=== PATIENT | female | born 1935 | race Caucasian/White ===

== ENCOUNTER 2017-11-22 23:01 | Emergency (ER) | payer MEDICARE ==
[~2017-11-22] VITALS: Ht 167.6 cm; Wt 68.0 kg
[~2017-11-22 23:01] MED LIST: ALLEGRA60 M2 PO; ASPIRIN81 M1 PO; B6-FOLIC ACID1 CAP PO; BUFFERED ASPIR325 MG PO; COMPLEXED POTAS99 MG PO; EFFIENT10 MG PO; FLEXERIL5 MG PO; LASIX20 MG PO; LEVOTHROID0.125 MG PO; LOPRESSOR50 MG PO; NORCO 325 MG-51 TAB PO; NORVASC10 MG PO; OMEGA-31000 MG PO; OYSTER CALCIUM500 M1 PO; PLAVIX75 MG PO; PRAVACHOL40 MG PO; PRAVASTATIN; PREDNISONE20 MG PO; PRILOSEC10 MG PO; ROBITUSSIN DM120 ML PO; ULTRA B-100 COM1 TER PO; VIBRAMYCIN100 MG PO; ZESTRIL5 MG PO; ZITHROMAX Z PA250 MG PO; ZOCOR80 MG PO; Zestril,Prinivi40 MG PO; [UNRECOGNIZED DRUG - CODE]; [UNRECOGNIZED DRUG - OTHER] PO
== END 2017-11-23 01:04 | disposition home or self-care (01) ==
LOC: ED 23:01
DX: L29.9 Pruritus, unspecified (principal); T38.0X5A Adverse effect of glucocorticoids and synthetic analogues, initial encounter; Z98.890 Other specified postprocedural states; Z95.5 Presence of coronary angioplasty implant and graft; Z79.899 Other long term (current) drug therapy; Z79.82 Long term (current) use of aspirin; Z91.041 Radiographic dye allergy status; Z88.0 Allergy status to penicillin; Y92.9 Unspecified place or not applicable

== ENCOUNTER 2018-06-25 09:15 | Emergency (ER) | payer MEDICARE ==
[~2018-06-25] VITALS: Ht 167.6 cm; Wt 90.7 kg
[2018-06-25] MEDS ORDERED: ACYCLOVIR800 MG PO (09:40)
[2018-06-25] MEDS ORDERED: NORCO 5-325 TA1 EACH PO (09:40)
[2018-06-26] MEDS ORDERED: NORCO 5-325 TA1 EACH PO (15:48)
[2018-06-26] MEDS ORDERED: NEURONTIN300 MG PO (15:48)
== END 2018-06-25 10:45 | disposition home or self-care (01) ==
LOC: ED 09:15
DX: B02.9 Zoster without complications (principal); Z91.041 Radiographic dye allergy status; Z88.0 Allergy status to penicillin; Z91.048 Other nonmedicinal substance allergy status; Z79.82 Long term (current) use of aspirin; Z79.899 Other long term (current) drug therapy

== ENCOUNTER 2018-06-26 15:28 | Emergency (ER) | payer MEDICARE ==
[~2018-06-26] VITALS: Ht 167.6 cm; Wt 90.7 kg
[~2018-06-26 15:28] MED LIST changes: +ACYCLOVIR800 MG PO; +NORCO 5-325 TA1 EACH PO
[2018-06-26] MEDS ORDERED: NORCO 5-325 TA1 EACH PO (15:48)
[2018-06-26] MEDS ORDERED: NEURONTIN300 MG PO (15:48)
== END 2018-06-26 15:54 | disposition home or self-care (01) ==
LOC: ED 15:28
DX: R21 Rash and other nonspecific skin eruption (principal); Z88.0 Allergy status to penicillin; Z91.041 Radiographic dye allergy status; Z79.899 Other long term (current) drug therapy; Z79.82 Long term (current) use of aspirin

== ENCOUNTER 2019-08-04 14:50 | Emergency (ER) | payer MEDICARE ==
[~2019-08-04] VITALS: Ht 167.6 cm; Wt 85.3 kg
[~2019-08-04 14:50] MED LIST changes: +NEURONTIN300 MG PO
[2019-08-04] MEDS ORDERED: TESSALON PERLE100 M1 PO (17:13)
[2019-08-04] MEDS ORDERED: PROAIR HFA8.5 GM INH (17:13)
[2019-08-04] MEDS ORDERED: DOXYCYCLINE100 M3 PO (17:26)
[2019-08-04] MEDS ORDERED: ZOFRAN4 MG PO (17:27)
== END 2019-08-04 17:20 | disposition home or self-care (01) ==
LOC: ED 14:50
DX: J18.1 Lobar pneumonia, unspecified organism (principal); E11.9 Type 2 diabetes mellitus without complications; I25.10 Atherosclerotic heart disease of native coronary artery without angina pectoris; I10 Essential (primary) hypertension; M19.90 Unspecified osteoarthritis, unspecified site; Z91.041 Radiographic dye allergy status; Z88.0 Allergy status to penicillin; Z79.899 Other long term (current) drug therapy; Z79.82 Long term (current) use of aspirin

== ENCOUNTER → 2019-09-10 | Outpatient (CLI) | payer MEDICARE ==
[~2019-09-10] MED LIST changes: +DOXYCYCLINE100 M3 PO; +PROAIR HFA8.5 GM INH; +TESSALON PERLE100 M1 PO; +ZOFRAN4 MG PO
== END | disposition home or self-care (01) ==
LOC: CT 10:47
DX: J18.9 Pneumonia, unspecified organism (principal); R91.1 Solitary pulmonary nodule

== ENCOUNTER → 2020-02-05 | Outpatient (CLI) | payer MEDICARE | END | disposition home or self-care (01) | LOC: CT 12-17 14:00 | DX: R91.8 Other nonspecific abnormal finding of lung field (principal); I25.10 Atherosclerotic heart disease of native coronary artery without angina pectoris; K44.9 Diaphragmatic hernia without obstruction or gangrene ==

== ENCOUNTER → 2021-02-24 | Outpatient (CLI) | payer MEDICARE ==
[~2021-02-24] MED LIST changes: +CALTRATE 600 P1 EACH PO; +CARDIZEM CD120 M2 PO; +COREG12.5 M1 PO; +ECOTRIN81 M1 PO; +IMDUR SA30 MG PO; +LANTUS SOL100 UNIT/1 SC; +LASIX40 MG PO; +LIPITOR40 MG PO; +PLAVIX75 M1 PO; +PROTONIX40 MG PO; +TYLENOL EXTRA500 MG PO; +ULORIC40 MG PO; +VICO75300 PO; +VOLTAREN ARTHRI20 GM T; +[UNRECOGNIZED DRUG - OTHER] PO
== END | disposition home or self-care (01) ==
LOC: CT 10:00
PROVIDERS: ATTEND Internal Medicine Critical Care Medicine
DX: J98.11 Atelectasis (principal); R91.8 Other nonspecific abnormal finding of lung field; I51.7 Cardiomegaly; I25.10 Atherosclerotic heart disease of native coronary artery without angina pectoris; K44.9 Diaphragmatic hernia without obstruction or gangrene; Z87.891 Personal history of nicotine dependence; Z68.32 Body mass index [BMI] 32.0-32.9, adult

== ENCOUNTER 2021-03-04 22:04 | Inpatient (IN) | payer MEDICARE ==
[~2021-03-04] VITALS: Ht 167.6 cm; Wt 86.7 kg
[~2021-03-04 22:04] MED LIST changes: -CALTRATE 600 P1 EACH PO; -CARDIZEM CD120 M2 PO; -COREG12.5 M1 PO; -ECOTRIN81 M1 PO; -IMDUR SA30 MG PO; -LANTUS SOL100 UNIT/1 SC; -LASIX40 MG PO; -LIPITOR40 MG PO; -PLAVIX75 M1 PO; -PROTONIX40 MG PO; -TYLENOL EXTRA500 MG PO; -ULORIC40 MG PO; -VICO75300 PO; -VOLTAREN ARTHRI20 GM T; -[UNRECOGNIZED DRUG - OTHER] PO
[2021-03-04 22:09] VITALS: BP 179/90
[2021-03-04 23:18] LABS: BASO % 0.3 % (0.0-1.0); EOS # 0.1 10*3/uL (0.0-0.4); EOS % 0.8 % (1.0-4.0); HEMATOCRIT 31.2 % (37.0-47.0); LYMPH # 1.5 10*3/uL (1.3-4.4); LYMPH % 9.9 % (27.0-41.0); MEAN CELL VOLUME 90.7 fl (81.0-99.0); MEAN CORPUSCULAR HGB 28.2 pg (27.0-31.0); MEAN CORPUSCULAR HGB CONC 31.1 g/dl (33.0-37.0); MEAN PLATELET VOLUME 9.7 fl (9.6-12.3); MONO # 0.8 10*3/uL (0.1-1.0); NEUT % 83.5 % (47.0-73.0); PLATELET COUNT AUTOMATED 302 10*3/uL (130-400); RED BLOOD COUNT 3.44 10*6/uL (4.10-5.10); RED CELL DISTRI WIDTH 13.2 % (0-14.5); WHITE BLOOD COUNT 15.5 10*3/uL (4.8-10.8)
[2021-03-04 23:34] LABS: ACT PARTIAL THROMBO TIME 20.8 SECONDS (20.0-32.1); INTERNATIONAL NORM RATIO 0.9 (2.0-3.5)
[2021-03-04 23:35] LABS: ALBUMIN 3.2 gm/dl (3.1-4.5); CREATININE 2.35 mg/dL (0.55-1.02); POTASSIUM 4.8 mmol/L (3.5-5.1); TOTAL PROTEIN 6.4 gm/dL (6.4-8.2)
[2021-03-05 03:00] VITALS: BP 157/62
[2021-03-05 04:16] VITALS: BP 160/70
[2021-03-05 06:33] LABS: BASO % 0.2 % (0.0-1.0); EOS # 0.1 10*3/uL (0.0-0.4); EOS % 0.7 % (1.0-4.0); HEMATOCRIT 28.4 % (37.0-47.0); LYMPH # 1.1 10*3/uL (1.3-4.4); MEAN CELL VOLUME 90.2 fl (81.0-99.0); MEAN CORPUSCULAR HGB 27.9 pg (27.0-31.0); MONO # 0.7 10*3/uL (0.1-1.0); MONO % 7.2 % (3.0-9.0); NEUT # 8.3 10*3/uL (2.3-7.9); NEUT % 80.4 % (47.0-73.0); PLATELET COUNT AUTOMATED 275 10*3/uL (130-400); RED BLOOD COUNT 3.15 10*6/uL (4.10-5.10); RED CELL DISTRI WIDTH 13.2 % (0-14.5); WHITE BLOOD COUNT 10.3 10*3/uL (4.8-10.8)
[2021-03-05 06:34] LABS: ALBUMIN 2.9 gm/dl (3.1-4.5); CREATININE 2.05 mg/dL (0.55-1.02); FREE T4 1.23 ng/dl (0.76-1.46); POTASSIUM 4.1 mmol/L (3.5-5.1); TOTAL PROTEIN 5.8 gm/dL (6.4-8.2)
[2021-03-05 06:39] LABS: THYROID STIM HORMONE (HS) 1.25 uIU/ml (0.358-4.75)
[2021-03-05] MEDS ORDERED: CALTRATE 600 P1 EACH PO (06:44)
[2021-03-05] MEDS ORDERED: ULORIC40 MG PO (06:45)
[2021-03-05] MEDS ORDERED: [UNRECOGNIZED DRUG - OTHER] PO (06:49)
[2021-03-05] MEDS ORDERED: PLAVIX75 M1 PO (06:51)
[2021-03-05] MEDS ORDERED: LIPITOR40 MG PO (06:52)
[2021-03-05] MEDS ORDERED: TYLENOL EXTRA500 MG PO (06:53)
[2021-03-05] MEDS ORDERED: ECOTRIN81 M1 PO (06:54)
[2021-03-05] MEDS ORDERED: IMDUR SA30 MG PO (06:56)
[2021-03-05] MEDS ORDERED: VOLTAREN ARTHRI20 GM T (06:59)
[2021-03-05] MEDS ORDERED: COREG12.5 M1 PO (07:01)
[2021-03-05] MEDS ORDERED: CARDIZEM CD120 M2 PO (07:04)
[2021-03-05] MEDS ORDERED: LASIX40 MG PO (07:06)
[2021-03-05] MEDS ORDERED: PROTONIX40 MG PO (07:08)
[2021-03-05] MEDS ORDERED: LANTUS SOL100 UNIT/1 SC (07:11)
[2021-03-05 08:00] VITALS: BP 154/72
[2021-03-05 12:00] VITALS: BP 146/40
[2021-03-05 16:00] VITALS: BP 180/52
[2021-03-05 20:00] VITALS: BP 172/56
[2021-03-06] VITALS (7 sets, daily range): BP systolic 142–178; BP diastolic 46–81
[2021-03-06 06:57] LABS: BASO % 0.4 % (0.0-1.0); EOS # 0.1 10*3/uL (0.0-0.4); EOS % 1.4 % (1.0-4.0); HEMATOCRIT 27.5 % (37.0-47.0); LYMPH # 1.6 10*3/uL (1.3-4.4); LYMPH % 20.2 % (27.0-41.0); MEAN CELL VOLUME 92.3 fl (81.0-99.0); MEAN CORPUSCULAR HGB 28.2 pg (27.0-31.0); MEAN CORPUSCULAR HGB CONC 30.5 g/dl (33.0-37.0); MEAN PLATELET VOLUME 9.8 fl (9.6-12.3); MONO # 0.8 10*3/uL (0.1-1.0); MONO % 9.9 % (3.0-9.0); NEUT # 5.2 10*3/uL (2.3-7.9); NEUT % 67.8 % (47.0-73.0); PLATELET COUNT AUTOMATED 228 10*3/uL (130-400); RED BLOOD COUNT 2.98 10*6/uL (4.10-5.10); RED CELL DISTRI WIDTH 13.5 % (0-14.5); WHITE BLOOD COUNT 7.7 10*3/uL (4.8-10.8)
[2021-03-06 07:22] LABS: CREATININE 1.78 mg/dL (0.55-1.02); POTASSIUM 4.3 mmol/L (3.5-5.1)
[2021-03-07] VITALS: BP 152/93
[2021-03-07 06:34] LABS: CREATININE 2.09 mg/dL (0.55-1.02); POTASSIUM 4.9 mmol/L (3.5-5.1)
[2021-03-07 06:40] LABS: BASO % 0.1 % (0.0-1.0); HEMATOCRIT 25.8 % (37.0-47.0); LYMPH % 8.4 % (27.0-41.0); MEAN CELL VOLUME 92.5 fl (81.0-99.0); MEAN CORPUSCULAR HGB 28.3 pg (27.0-31.0); MEAN CORPUSCULAR HGB CONC 30.6 g/dl (33.0-37.0); MONO # 0.8 10*3/uL (0.1-1.0); MONO % 6.6 % (3.0-9.0); NEUT # 9.9 10*3/uL (2.3-7.9); NEUT % 84.4 % (47.0-73.0); PLATELET COUNT AUTOMATED 243 10*3/uL (130-400); RED BLOOD COUNT 2.79 10*6/uL (4.10-5.10); RED CELL DISTRI WIDTH 13.2 % (0-14.5); WHITE BLOOD COUNT 11.7 10*3/uL (4.8-10.8)
[2021-03-07 08:00] VITALS: BP 164/90
[2021-03-07 12:00] VITALS: BP 158/50
[2021-03-07 16:00] VITALS: BP 167/59
[2021-03-07 20:00] VITALS: BP 166/58
[2021-03-08] VITALS: BP 149/54
[2021-03-08 05:54] LABS: CREATININE 2.11 mg/dL (0.55-1.02); POTASSIUM 4.5 mmol/L (3.5-5.1)
[2021-03-08 06:27] LABS: BASO % 0.3 % (0.0-1.0); EOS # 0.2 10*3/uL (0.0-0.4); EOS % 2.5 % (1.0-4.0); HEMATOCRIT 24.1 % (37.0-47.0); LYMPH # 1.8 10*3/uL (1.3-4.4); LYMPH % 19.6 % (27.0-41.0); MEAN CORPUSCULAR HGB 28.6 pg (27.0-31.0); MEAN CORPUSCULAR HGB CONC 31.1 g/dl (33.0-37.0); MEAN PLATELET VOLUME 9.9 fl (9.6-12.3); MONO # 0.9 10*3/uL (0.1-1.0); NEUT # 6.1 10*3/uL (2.3-7.9); NEUT % 67.2 % (47.0-73.0); PLATELET COUNT AUTOMATED 267 10*3/uL (130-400); RED BLOOD COUNT 2.62 10*6/uL (4.10-5.10); RED CELL DISTRI WIDTH 13.2 % (0-14.5)
[2021-03-08 08:00] VITALS: BP 134/68
[2021-03-08 12:00] VITALS: BP 100/50
[2021-03-08 16:00] VITALS: BP 162/54
[2021-03-08 20:00] VITALS: BP 148/49
[2021-03-08 23:01] LABS: BILIRUBIN Negative (Negative); BLOOD 2+ (Negative); CLARITY Cloudy (Clear); COLOR Yellow (Yellow); GLUCOSE Negative (Negative); KETONE Negative (Negative); LEUKO ESTERASE 1+ (Negative); NITRITE Negative (Negative); SPECIFIC GRAVITY 1.015 (1.001-1.030); UROBILINOGEN 0.2 E.U./dl (0.0-1.0)
[2021-03-08 23:20] LABS: URINE CREATININE RANDOM 72.2 mg/dL
[2021-03-08 23:28] LABS: BACTERIA 4+; EPITHELIAL CELLS 31-40; RBC 21-30 rbc/hpf (0-2); WBC 41-50 wbc/hpf (0-5)
[2021-03-09] VITALS: BP 153/42
[2021-03-09 06:50] LABS: CREATININE 1.86 mg/dL (0.55-1.02); POTASSIUM 4.4 mmol/L (3.5-5.1)
[2021-03-09 07:00] LABS: BASO % 0.3 % (0.0-1.0); EOS # 0.3 10*3/uL (0.0-0.4); EOS % 3.8 % (1.0-4.0); HEMATOCRIT 23.6 % (37.0-47.0); LYMPH # 1.6 10*3/uL (1.3-4.4); LYMPH % 23.1 % (27.0-41.0); MEAN CELL VOLUME 92.9 fl (81.0-99.0); MEAN CORPUSCULAR HGB 28.3 pg (27.0-31.0); MEAN CORPUSCULAR HGB CONC 30.5 g/dl (33.0-37.0); MEAN PLATELET VOLUME 9.9 fl (9.6-12.3); MONO # 0.7 10*3/uL (0.1-1.0); MONO % 10.2 % (3.0-9.0); NEUT # 4.3 10*3/uL (2.3-7.9); NEUT % 62.3 % (47.0-73.0); PLATELET COUNT AUTOMATED 266 10*3/uL (130-400); RED BLOOD COUNT 2.54 10*6/uL (4.10-5.10); RED CELL DISTRI WIDTH 13.2 % (0-14.5); WHITE BLOOD COUNT 6.9 10*3/uL (4.8-10.8)
[2021-03-09 08:00] VITALS: BP 132/82; BP 146/64
[2021-03-09] MEDS ORDERED: LASIX40 MG PO (11:44)
[2021-03-09] MEDS ORDERED: VICO75300 PO (11:44)
[2021-03-09 12:00] VITALS: BP 135/62; BP 142/70
[2021-03-09 16:00] VITALS: BP 138/72
== END 2021-03-09 19:05 | disposition home health service (06) | DRG 480 ==
LOC: ED 22:04 → EDHOLD 03-05 03:19 → 5E 03-05 03:19
PROVIDERS: Emergency Medicine; Internal Medicine; Orthopaedic Surgery; Student in an Organized Health Care Education/Training Program; ADMIT Emergency Medicine; ATTEND Emergency Medicine
PROC: 0QS606Z Reposition Right Upper Femur with Intramedullary Internal Fixation Device, Open Approach (ICD-10-PCS; principal; 2021-03-06)
DX: S72.141A Displaced intertrochanteric fracture of right femur, initial encounter for closed fracture (principal); N17.0 Acute kidney failure with tubular necrosis; M48.00 Spinal stenosis, site unspecified; E11.42 Type 2 diabetes mellitus with diabetic polyneuropathy; I12.9 Hypertensive chronic kidney disease with stage 1 through stage 4 chronic kidney disease, or unspecified chronic kidney disease; E11.22 Type 2 diabetes mellitus with diabetic chronic kidney disease; N18.32 Chronic kidney disease, stage 3b; Z20.822 Contact with and (suspected) exposure to COVID-19; D64.9 Anemia, unspecified; E11.65 Type 2 diabetes mellitus with hyperglycemia; W19.XXXA Unspecified fall, initial encounter; K21.9 Gastro-esophageal reflux disease without esophagitis; E78.5 Hyperlipidemia, unspecified; E03.9 Hypothyroidism, unspecified; I25.10 Atherosclerotic heart disease of native coronary artery without angina pectoris; G89.18 Other acute postprocedural pain; Z95.5 Presence of coronary angioplasty implant and graft; Y93.89 Activity, other specified; Z79.4 Long term (current) use of insulin; Y92.89 Other specified places as the place of occurrence of the external cause; Y99.8 Other external cause status; Z98.891 History of uterine scar from previous surgery; Z87.891 Personal history of nicotine dependence; Z88.0 Allergy status to penicillin; Z91.041 Radiographic dye allergy status; Z83.3 Family history of diabetes mellitus; Z82.49 Family history of ischemic heart disease and other diseases of the circulatory system

== ENCOUNTER → 2021-03-21 | Outpatient (CLI) | payer MEDICARE ==
[~2021-03-21] MED LIST changes: +CALTRATE 600 P1 EACH PO; +CARDIZEM CD120 M2 PO; +COREG12.5 M1 PO; +ECOTRIN81 M1 PO; +IMDUR SA30 MG PO; +LANTUS SOL100 UNIT/1 SC; +LASIX40 MG PO; +LIPITOR40 MG PO; +PLAVIX75 M1 PO; +PROTONIX40 MG PO; +TYLENOL EXTRA500 MG PO; +ULORIC40 MG PO; +VICO75300 PO; +VOLTAREN ARTHRI20 GM T; +[UNRECOGNIZED DRUG - OTHER] PO
== END | disposition home or self-care (01) ==
LOC: ORTHO 00:26
PROVIDERS: ATTEND Orthopaedic Surgery
DX: S72.001A Fracture of unspecified part of neck of right femur, initial encounter for closed fracture (principal); X58.XXXA Exposure to other specified factors, initial encounter; Y93.89 Activity, other specified; Y92.89 Other specified places as the place of occurrence of the external cause; Y99.8 Other external cause status

== ENCOUNTER → 2021-04-14 | Outpatient (CLI) | payer MEDICARE | END | disposition home or self-care (01) | LOC: ORTHO 02:09 | PROVIDERS: ATTEND Orthopaedic Surgery | DX: I70.201 Unspecified atherosclerosis of native arteries of extremities, right leg (principal); S72.141D Displaced intertrochanteric fracture of right femur, subsequent encounter for closed fracture with routine healing; G95.89 Other specified diseases of spinal cord; X58.XXXD Exposure to other specified factors, subsequent encounter ==

== ENCOUNTER → 2021-05-27 | Outpatient (CLI) | payer MEDICARE | END | disposition home or self-care (01) | LOC: ORTHO 00:10 | PROVIDERS: ATTEND Orthopaedic Surgery | DX: S72.141D Displaced intertrochanteric fracture of right femur, subsequent encounter for closed fracture with routine healing (principal); X58.XXXD Exposure to other specified factors, subsequent encounter ==

== ENCOUNTER → 2021-06-20 | Outpatient (CLI) | payer MEDICARE ==
[~2021-06-20] MED LIST changes: +MACROBID100 M1 PO; +PREDNISONE20 M1 PO
== END | disposition home or self-care (01) ==
LOC: ORTHO 01:25
PROVIDERS: ATTEND Orthopaedic Surgery
DX: M19.012 Primary osteoarthritis, left shoulder (principal); M25.712 Osteophyte, left shoulder

== ENCOUNTER 2021-06-22 09:32 | Emergency (ER) | payer MEDICARE ==
[~2021-06-22 09:32] MED LIST changes: -MACROBID100 M1 PO; -PREDNISONE20 M1 PO
[2021-06-22 11:30] LABS: BILIRUBIN Negative (Negative); BLOOD 3+ (Negative); CLARITY Clear (Clear); COLOR Yellow (Yellow); GLUCOSE Trace (Negative); KETONE Negative (Negative); LEUKO ESTERASE Negative (Negative); NITRITE Negative (Negative); UROBILINOGEN 0.2 E.U./dl (0.0-1.0)
[2021-06-22 11:43] LABS: BACTERIA 2+; RBC TNTC rbc/hpf (0-2)
[2021-06-22] MEDS ORDERED: PREDNISONE20 M1 PO (12:04)
[2021-06-22] MEDS ORDERED: MACROBID100 M1 PO (12:07)
== END 2021-06-22 13:00 | disposition home or self-care (01) ==
LOC: ED 09:32
PROVIDERS: Emergency Medicine
DX: R30.0 Dysuria (principal); T36.8X5A Adverse effect of other systemic antibiotics, initial encounter; N39.0 Urinary tract infection, site not specified; Z91.041 Radiographic dye allergy status; Z88.0 Allergy status to penicillin; Z79.899 Other long term (current) drug therapy; Z79.82 Long term (current) use of aspirin; Z87.891 Personal history of nicotine dependence; Y92.89 Other specified places as the place of occurrence of the external cause

== ENCOUNTER → 2022-07-03 | Outpatient (CLI) | payer MEDICARE ==
[~2022-07-03] MED LIST changes: +MACROBID100 M1 PO; +PREDNISONE20 M1 PO
== END | disposition home or self-care (01) ==
LOC: RESCLI 00:49
PROVIDERS: ATTEND Internal Medicine
DX: I12.0 Hypertensive chronic kidney disease with stage 5 chronic kidney disease or end stage renal disease (principal); N18.6 End stage renal disease; E78.00 Pure hypercholesterolemia, unspecified; Z79.4 Long term (current) use of insulin; E11.22 Type 2 diabetes mellitus with diabetic chronic kidney disease; M19.012 Primary osteoarthritis, left shoulder; Z00.00 Encounter for general adult medical examination without abnormal findings; K21.9 Gastro-esophageal reflux disease without esophagitis; E03.9 Hypothyroidism, unspecified; E78.2 Mixed hyperlipidemia; M10.9 Gout, unspecified; E55.9 Vitamin D deficiency, unspecified; Z79.899 Other long term (current) drug therapy; Z88.0 Allergy status to penicillin; Z88.8 Allergy status to other drugs, medicaments and biological substances

== ENCOUNTER → 2022-08-25 | Outpatient (CLI) | payer MEDICARE | END | disposition home or self-care (01) | LOC: RAD 13:40 | PROVIDERS: ATTEND Orthopaedic Surgery | DX: M19.012 Primary osteoarthritis, left shoulder (principal); M19.011 Primary osteoarthritis, right shoulder; M25.711 Osteophyte, right shoulder ==

== ENCOUNTER 2023-09-09 02:12 | Inpatient (IN) | payer MEDICARE ==
[~2023-09-09] VITALS: Ht 165.1 cm; Wt 84.0 kg
[2023-09-09 02:24] VITALS: BP 195/96
[2023-09-09 04:00] LABS: HEMATOCRIT 30.9 % (37.0-47.0); MEAN CELL VOLUME 93.4 fl (81.0-99.0); MEAN CORPUSCULAR HGB 30.2 pg (27.0-31.0); MEAN CORPUSCULAR HGB CONC 32.4 g/dl (33.0-37.0); MEAN PLATELET VOLUME 9.6 fl (9.6-12.3); PLATELET COUNT AUTOMATED 265 10*3/uL (130-400); RED BLOOD COUNT 3.31 10*6/uL (4.10-5.10); RED CELL DISTRI WIDTH 12.6 % (0-14.5); WHITE BLOOD COUNT 25.1 10*3/uL (4.8-10.8)
[2023-09-09 04:26] LABS: MANUAL DIFF REFLEX YES
[2023-09-09 04:42] LABS: PLATELET SUFFICIENCY NORMAL (NORMAL); TOTAL CELLS COUNTED 100 #CELLS
[2023-09-09 05:23] LABS: POTASSIUM 3.3 mmol/L (3.4-5.1); TOTAL PROTEIN 5.2 gm/dL (6.0-8.0)
[2023-09-09 05:45] LABS: BILIRUBIN Negative (Negative); BLOOD 1+ (Negative); CLARITY Turbid (Clear); COLOR Yellow (Yellow); GLUCOSE Trace (Negative); KETONE Negative (Negative); LEUKO ESTERASE 2+ (Negative); NITRITE Negative (Negative); PH 5.5 (4.5-8.0); SPECIFIC GRAVITY 1.015 (1.001-1.030); UROBILINOGEN 0.2 E.U./dl (0.0-1.0)
[2023-09-09] MEDS ORDERED: Ceftriaxone Sodium 1 GM/10 ML SYR IV ONE (05:55)
[2023-09-09 06:05] LABS: BACTERIA 1+; WBC TNTC wbc/hpf (0-5)
[2023-09-09 06:57] VITALS: BP 211/76
[2023-09-09] MEDS ORDERED: SODIUM CHLORIDE 0.9% 1,000 ML IV SCH (08:35)
[2023-09-09] MEDS ORDERED: ACETAMINOPHEN 500 MG TAB PO PRN (08:35)
[2023-09-09] MEDS ORDERED: HYDROmorphONE Hydrochloride 0.5 MG/0.5 ML SYRINGE IV ONE (09:10)
[2023-09-09 09:40] VITALS: BP 197/76
[2023-09-09] MEDS ORDERED: ISOSORBIDE MONONITRATE 30 MG TAB PO SCH (10:00)
[2023-09-09] MEDS ORDERED: Levothyroxine Sodium 125 MCG TAB PO SCH (10:00)
[2023-09-09] MEDS ORDERED: CALCIUM (OSCAL) 500MG PO SCH (10:00)
[2023-09-09] MEDS ORDERED: CARVEDILOL 12.5 MG TAB PO SCH (10:00)
[2023-09-09] MEDS ORDERED: ATORVASTATIN CALCIUM 40 MG TABLET PO SCH (10:00)
[2023-09-09] MEDS ORDERED: DILTIAZEM CD 120 MG CAP PO SCH (10:00)
[2023-09-09] MEDS ORDERED: Pantoprazole Sodium 40 MG TAB PO SCH (10:00)
[2023-09-09] MEDS ORDERED: Insulin Glargine, Recombinan 1 UNIT/0.01 ML SC SCH (10:00)
[2023-09-09 12:00] VITALS: BP 198/62
[2023-09-09] MEDS ORDERED: Sennosides A and B 8.6 MG TAB PO PRN (15:05)
[2023-09-09] MEDS ORDERED: HYDROmorphONE Hydrochloride 0.5 MG/0.5 ML SYRINGE IV PRN (15:05)
[2023-09-09 16:00] VITALS: BP 166/60
[2023-09-09 20:00] VITALS: BP 198/76
[2023-09-10] VITALS: BP 182/84
[2023-09-10] MEDS ORDERED: Ceftriaxone Sodium 1 GM in SYRINGE INFUSION 10 ML IV SCH (06:00)
[2023-09-10 06:40] LABS: POTASSIUM 3.8 mmol/L (3.4-5.1); TOTAL PROTEIN 4.6 gm/dL (6.0-8.0)
[2023-09-10 06:56] LABS: BASO % 0.1 % (0.0-1.0); EOS # 0.1 10*3/uL (0.0-0.4); EOS % 0.7 % (1.0-4.0); HEMATOCRIT 25.5 % (37.0-47.0); LYMPH # 1.5 10*3/uL (1.3-4.4); LYMPH % 16.2 % (27.0-41.0); MEAN CELL VOLUME 94.4 fl (81.0-99.0); MEAN CORPUSCULAR HGB CONC 31.8 g/dl (33.0-37.0); MEAN PLATELET VOLUME 10.4 fl (9.6-12.3); MONO # 1.1 10*3/uL (0.1-1.0); MONO % 12.1 % (3.0-9.0); NEUT # 6.4 10*3/uL (2.3-7.9); NEUT % 70.3 % (47.0-73.0); RED CELL DISTRI WIDTH 12.8 % (0-14.5)
[2023-09-10 07:00] LABS: PLATELET COUNT AUTOMATED 183 10*3/uL (130-400)
[2023-09-10 08:00] VITALS: BP 168/78
[2023-09-10] MEDS ORDERED: Clopidogrel Hydrogen Sulfate 75 MG TAB PO SCH (10:00)
[2023-09-10] MEDS ORDERED: ASPIRIN ENTERIC COATED 81 MG TAB PO SCH (10:00)
[2023-09-10 12:00] VITALS: BP 182/68
[2023-09-10 16:00] VITALS: BP 180/82
[2023-09-10 20:00] VITALS: BP 184/82
[2023-09-10] MEDS ORDERED: CYANOCOBALAMIN 1,000 MCG/ML VIAL IM ONE (21:45)
[2023-09-11] VITALS (10 sets, daily range): BP systolic 142–200; BP diastolic 50–86
[2023-09-11] MEDS ORDERED: hydrALAZINE hydrochloride 20 MG/ML VIAL IV ONE ×2 (01:00→04:50)
[2023-09-11] MEDS ORDERED: CALCIUM (TUMS) 500MG PO ONE (01:45)
[2023-09-11] MEDS ORDERED: Labetalol Hydrochloride 20 MG/4 ML SYR IV ONE ×2 (02:20→17:50)
[2023-09-11] MEDS ORDERED: HYDROmorphONE Hydrochloride 0.5 MG/0.5 ML SYRINGE IV PRN (04:46)
[2023-09-11 06:24] LABS: BASO % 0.2 % (0.0-1.0); EOS # 0.1 10*3/uL (0.0-0.4); EOS % 0.7 % (1.0-4.0); HEMATOCRIT 25.8 % (37.0-47.0); LYMPH # 1.6 10*3/uL (1.3-4.4); LYMPH % 13.8 % (27.0-41.0); MEAN CELL VOLUME 95.9 fl (81.0-99.0); MEAN CORPUSCULAR HGB 29.7 pg (27.0-31.0); MEAN PLATELET VOLUME 10.1 fl (9.6-12.3); MONO # 1.1 10*3/uL (0.1-1.0); MONO % 9.5 % (3.0-9.0); NEUT # 8.5 10*3/uL (2.3-7.9); NEUT % 75.2 % (47.0-73.0); PLATELET COUNT AUTOMATED 162 10*3/uL (130-400); RED BLOOD COUNT 2.69 10*6/uL (4.10-5.10); RED CELL DISTRI WIDTH 12.6 % (0-14.5); WHITE BLOOD COUNT 11.3 10*3/uL (4.8-10.8)
[2023-09-11 06:56] LABS: POTASSIUM 3.9 mmol/L (3.4-5.1); TOTAL PROTEIN 4.5 gm/dL (6.0-8.0)
[2023-09-11] MEDS ORDERED: Ondansetron Hydrochloride 4 MG/2 ML VIAL IV PRN (09:15)
[2023-09-11] MEDS ORDERED: DOCUSATE SODIUM 100 MG CAP PO SCH ×2 (10:00→18:00)
[2023-09-11] MEDS ORDERED: amLODIPine besylate 5 MG TAB PO SCH (10:00)
[2023-09-11] MEDS ORDERED: CIPRO500 MG PO (12:13)
[2023-09-11] MEDS ORDERED: NA FERRIC GLUC CMPL/SUCROSE 62.5 MG/5 ML VIAL IV ONE ×2 (13:35→15:15)
[2023-09-11] MEDS ORDERED: FUROSEMIDE 40 MG/4 ML VIAL IV ONE (13:50)
[2023-09-11] MEDS ORDERED: hydrALAZINE hydrochloride 25 MG TAB PO SCH (22:00)
[2023-09-12] VITALS (8 sets, daily range): BP systolic 119–196; BP diastolic 68–92
[2023-09-12 06:09] LABS: BASO % 0.2 % (0.0-1.0); EOS # 0.1 10*3/uL (0.0-0.4); EOS % 0.4 % (1.0-4.0); HEMATOCRIT 25.4 % (37.0-47.0); LYMPH # 1.3 10*3/uL (1.3-4.4); LYMPH % 10.2 % (27.0-41.0); MEAN CELL VOLUME 98.1 fl (81.0-99.0); MEAN CORPUSCULAR HGB 30.5 pg (27.0-31.0); MEAN CORPUSCULAR HGB CONC 31.1 g/dl (33.0-37.0); MEAN PLATELET VOLUME 10.7 fl (9.6-12.3); MONO % 8.2 % (3.0-9.0); NEUT # 10.2 10*3/uL (2.3-7.9); NEUT % 80.4 % (47.0-73.0); PLATELET COUNT AUTOMATED 171 10*3/uL (130-400); RED BLOOD COUNT 2.59 10*6/uL (4.10-5.10); WHITE BLOOD COUNT 12.6 10*3/uL (4.8-10.8)
[2023-09-12 06:15] LABS: POTASSIUM 4.1 mmol/L (3.4-5.1); TOTAL PROTEIN 4.7 gm/dL (6.0-8.0)
[2023-09-12] MEDS ORDERED: NA FERRIC GLUC CMPL/SUCROSE 62.5 MG/5 ML VIAL IV ONE (09:55)
[2023-09-12] MEDS ORDERED: FUROSEMIDE 40 MG TAB PO SCH (10:00)
[2023-09-12] MEDS ORDERED: CYANOCOBALAMIN 1,000 MCG/ML VIAL IM ONE (10:00)
[2023-09-12] MEDS ORDERED: CIPRO500 MG PO (14:28)
[2023-09-12] MEDS ORDERED: Labetalol Hydrochloride 20 MG/4 ML SYR IV ONE (23:20)
[2023-09-12] MEDS ORDERED: Ciprofloxacin Hydrochloride 500 MG TAB PO SCH (23:55)
[2023-09-13 00:31] VITALS: BP 202/62
[2023-09-13] MEDS ORDERED: Labetalol Hydrochloride 20 MG/4 ML SYR IV ONE (00:40)
[2023-09-13 01:47] VITALS: BP 198/72
[2023-09-13] MEDS ORDERED: HYDROmorphONE Hydrochloride 0.5 MG/0.5 ML SYRINGE IV PRN (01:51)
[2023-09-13] MEDS ORDERED: Acetaminophen/Hydrocodone ES 7.5/325 tablet PO PRN (05:05)
[2023-09-13 05:35] LABS: POTASSIUM 4.2 mmol/L (3.4-5.1); TOTAL PROTEIN 4.9 gm/dL (6.0-8.0)
[2023-09-13 06:07] LABS: BASO % 0.2 % (0.0-1.0); EOS # 0.1 10*3/uL (0.0-0.4); EOS % 0.5 % (1.0-4.0); LYMPH # 1.3 10*3/uL (1.3-4.4); LYMPH % 11.5 % (27.0-41.0); MEAN CORPUSCULAR HGB 30.2 pg (27.0-31.0); MEAN CORPUSCULAR HGB CONC 31.2 g/dl (33.0-37.0); MEAN PLATELET VOLUME 10.4 fl (9.6-12.3); MONO % 8.5 % (3.0-9.0); NEUT # 9.2 10*3/uL (2.3-7.9); NEUT % 78.8 % (47.0-73.0); PLATELET COUNT AUTOMATED 179 10*3/uL (130-400); RED BLOOD COUNT 2.68 10*6/uL (4.10-5.10); RED CELL DISTRI WIDTH 12.9 % (0-14.5); WHITE BLOOD COUNT 11.7 10*3/uL (4.8-10.8)
[2023-09-13 08:00] VITALS: BP 168/86
[2023-09-13] MEDS ORDERED: NA FERRIC GLUC CMPL/SUCROSE 62.5 MG/5 ML VIAL IV ONE (09:30)
[2023-09-13] MEDS ORDERED: Polyethylene Glycol 3350 17 GM PACKET PO PRN (09:35)
[2023-09-13 12:00] VITALS: BP 126/69; BP 184/56
[2023-09-13] MEDS ORDERED: hydrALAZINE hydrochloride 50 MG TAB PO SCH ×2 (14:00→22:00)
[2023-09-13 16:00] VITALS: BP 163/95
[2023-09-13 20:00] VITALS: BP 188/55
[2023-09-13] MEDS ORDERED: FUROSEMIDE 40 MG/4 ML VIAL IV ONE (20:05)
[2023-09-14] VITALS: BP 145/56
[2023-09-14 08:08] VITALS: BP 168/55
[2023-09-14] MEDS ORDERED: FUROSEMIDE 40 MG IV ONE (10:30)
[2023-09-14] MEDS ORDERED: FUROSEMIDE 40 MG/4 ML VIAL IV ONE (10:45)
[2023-09-14 11:08] LABS: BASO % 0.2 % (0.0-1.0); EOS # 0.1 10*3/uL (0.0-0.4); EOS % 0.4 % (1.0-4.0); HEMATOCRIT 26.8 % (37.0-47.0); LYMPH # 1.1 10*3/uL (1.3-4.4); LYMPH % 9.5 % (27.0-41.0); MEAN CELL VOLUME 97.1 fl (81.0-99.0); MEAN CORPUSCULAR HGB 29.7 pg (27.0-31.0); MEAN CORPUSCULAR HGB CONC 30.6 g/dl (33.0-37.0); MEAN PLATELET VOLUME 10.3 fl (9.6-12.3); MONO # 0.9 10*3/uL (0.1-1.0); MONO % 7.3 % (3.0-9.0); NEUT # 9.6 10*3/uL (2.3-7.9); NEUT % 81.9 % (47.0-73.0); PLATELET COUNT AUTOMATED 191 10*3/uL (130-400); RED BLOOD COUNT 2.76 10*6/uL (4.10-5.10); RED CELL DISTRI WIDTH 13.2 % (0-14.5); WHITE BLOOD COUNT 11.7 10*3/uL (4.8-10.8)
[2023-09-14 11:34] LABS: POTASSIUM 4.4 mmol/L (3.4-5.1); TOTAL PROTEIN 4.9 gm/dL (6.0-8.0)
[2023-09-14 12:00] VITALS: BP 131/42
[2023-09-14 16:00] VITALS: BP 135/58
[2023-09-14] MEDS ORDERED: Acetaminophen/Oxycodone Hydr 7.5 MG/325 MG TABLET PO PRN (17:30)
[2023-09-14 20:00] VITALS: BP 136/43
[2023-09-15] VITALS: BP 136/60
[2023-09-15 08:00] VITALS: BP 155/71
[2023-09-15 12:00] VITALS: BP 152/50
[2023-09-15] MEDS ORDERED: BISACODYL 10 MG SUPP R ONE (15:25)
[2023-09-15 16:00] VITALS: BP 140/54
[2023-09-15] MEDS ORDERED: Na Phos, Dibasic/Na Phos, Mo 1 EA BOT R ONE (16:40)
[2023-09-15 17:12] LABS: BASO % 0.1 % (0.0-1.0); EOS % 0.4 % (1.0-4.0); HEMATOCRIT 24.6 % (37.0-47.0); LYMPH % 9.6 % (27.0-41.0); MEAN CELL VOLUME 97.6 fl (81.0-99.0); MEAN CORPUSCULAR HGB 30.2 pg (27.0-31.0); MEAN CORPUSCULAR HGB CONC 30.9 g/dl (33.0-37.0); MONO # 0.7 10*3/uL (0.1-1.0); MONO % 6.7 % (3.0-9.0); NEUT # 8.8 10*3/uL (2.3-7.9); NEUT % 82.6 % (47.0-73.0); PLATELET COUNT AUTOMATED 196 10*3/uL (130-400); RED BLOOD COUNT 2.52 10*6/uL (4.10-5.10); RED CELL DISTRI WIDTH 13.2 % (0-14.5); WHITE BLOOD COUNT 10.6 10*3/uL (4.8-10.8)
[2023-09-15 17:36] LABS: POTASSIUM 4.9 mmol/L (3.4-5.1)
[2023-09-15] MEDS ORDERED: MAGNESIUM CITRATE 296 ML BOT PO PRN (18:35)
[2023-09-15 20:00] VITALS: BP 132/48
[2023-09-15] MEDS ORDERED: Polyethylene Glycol 3350 17 GM PACKET PO SCH (22:00)
[2023-09-16] VITALS: BP 134/50
[2023-09-16 06:05] VITALS: BP 130/68
[2023-09-16 12:00] VITALS: BP 148/65; BP 162/52
[2023-09-16] MEDS ORDERED: NA FERRIC GLUC CMPL/SUCROSE 62.5 MG/5 ML VIAL IV ONE (12:10)
[2023-09-16] MEDS ORDERED: SODIUM CHLORIDE 0.9% 1,000 ML IV ONE (12:10)
[2023-09-16 16:00] VITALS: BP 152/73
[2023-09-16 20:00] VITALS: BP 120/32
[2023-09-16 20:55] VITALS: BP 110/44
[2023-09-17] VITALS: BP 138/57
[2023-09-17 05:05] VITALS: BP 140/50
[2023-09-17 06:28] LABS: URINE CREATININE RANDOM 69.26 mg/dL
[2023-09-17 06:34] LABS: BILIRUBIN Negative (Negative); BLOOD Negative (Negative); CLARITY Cloudy (Clear); COLOR Yellow (Yellow); GLUCOSE Negative (Negative); KETONE Negative (Negative); LEUKO ESTERASE Negative (Negative); NITRITE Negative (Negative); SPECIFIC GRAVITY 1.015 (1.001-1.030); UROBILINOGEN 0.2 E.U./dl (0.0-1.0)
[2023-09-17 06:43] LABS: BACTERIA 2+; MUCOUS 1+; WBC 21-30 wbc/hpf (0-5)
[2023-09-17 08:00] VITALS: BP 150/47
[2023-09-17 12:00] VITALS: BP 102/62
[2023-09-17 14:12] LABS: POTASSIUM 4.4 mmol/L (3.4-5.1)
[2023-09-17 16:00] VITALS: BP 128/50
[2023-09-17 20:00] VITALS: BP 149/48
[2023-09-18] VITALS (11 sets, daily range): BP systolic 130–164; BP diastolic 47–525
[2023-09-18 05:40] LABS: POTASSIUM 4.5 mmol/L (3.4-5.1); TOTAL PROTEIN 4.6 gm/dL (6.0-8.0)
[2023-09-18 06:36] LABS: HEMATOCRIT 22.2 % (37.0-47.0); MEAN CELL VOLUME 98.7 fl (81.0-99.0); MEAN CORPUSCULAR HGB 29.3 pg (27.0-31.0); MEAN CORPUSCULAR HGB CONC 29.7 g/dl (33.0-37.0); MEAN PLATELET VOLUME 10.3 fl (9.6-12.3); PLATELET COUNT AUTOMATED 203 10*3/uL (130-400); RED BLOOD COUNT 2.25 10*6/uL (4.10-5.10); RED CELL DISTRI WIDTH 13.2 % (0-14.5); WHITE BLOOD COUNT 8.8 10*3/uL (4.8-10.8)
[2023-09-18 06:38] LABS: MANUAL DIFF REFLEX YES
[2023-09-18 07:48] LABS: BASOPHILS 1 % (0-1); BURR CELLS FEW; PLATELET SUFFICIENCY NORMAL (NORMAL); POLYCHROMASIA SLIGHT; TOTAL CELLS COUNTED 100 #CELLS; TOXIC GRANULATION SLIGHT
[2023-09-18] MEDS ORDERED: SODIUM CHLORIDE 0.9% 500 ML IV ONE (08:10)
[2023-09-18 16:01] LABS: URINE CHLORIDE, RANDOM < 20 mmol/L
[2023-09-18 16:18] LABS: URINE CREATININE RANDOM 74.44 mg/dL
[2023-09-18 20:15] LABS: BASO % 0.1 % (0.0-1.0); EOS # 0.1 10*3/uL (0.0-0.4); EOS % 0.8 % (1.0-4.0); HEMATOCRIT 26.8 % (37.0-47.0); LYMPH # 1.1 10*3/uL (1.3-4.4); LYMPH % 11.7 % (27.0-41.0); MEAN CORPUSCULAR HGB 29.5 pg (27.0-31.0); MEAN PLATELET VOLUME 9.8 fl (9.6-12.3); MONO # 0.7 10*3/uL (0.1-1.0); NEUT # 7.1 10*3/uL (2.3-7.9); NEUT % 78.6 % (47.0-73.0); PLATELET COUNT AUTOMATED 216 10*3/uL (130-400); RED BLOOD COUNT 2.81 10*6/uL (4.10-5.10); RED CELL DISTRI WIDTH 14.6 % (0-14.5)
[2023-09-18 20:18] LABS: MEAN CELL VOLUME 95.4 fl (81.0-99.0)
[2023-09-19] VITALS: BP 156/42
[2023-09-19 06:05] LABS: POTASSIUM 4.3 mmol/L (3.4-5.1)
[2023-09-19 06:11] LABS: BASO % 0.1 % (0.0-1.0); EOS # 0.1 10*3/uL (0.0-0.4); EOS % 1.1 % (1.0-4.0); LYMPH # 1.1 10*3/uL (1.3-4.4); LYMPH % 13.9 % (27.0-41.0); MEAN CELL VOLUME 96.7 fl (81.0-99.0); MEAN CORPUSCULAR HGB 29.7 pg (27.0-31.0); MEAN CORPUSCULAR HGB CONC 30.8 g/dl (33.0-37.0); MEAN PLATELET VOLUME 9.8 fl (9.6-12.3); MONO # 0.6 10*3/uL (0.1-1.0); MONO % 8.1 % (3.0-9.0); NEUT % 76.2 % (47.0-73.0); PLATELET COUNT AUTOMATED 221 10*3/uL (130-400); RED BLOOD COUNT 2.69 10*6/uL (4.10-5.10); RED CELL DISTRI WIDTH 14.4 % (0-14.5); WHITE BLOOD COUNT 7.9 10*3/uL (4.8-10.8)
[2023-09-19 08:00] VITALS: BP 140/43
[2023-09-19 12:00] VITALS: BP 173/57
[2023-09-19 16:00] VITALS: BP 168/52
[2023-09-19 20:00] VITALS: BP 149/44
[2023-09-20] VITALS: BP 156/46
[2023-09-20 06:28] VITALS: BP 178/67
[2023-09-20 06:55] LABS: BASO % 0.2 % (0.0-1.0); EOS # 0.1 10*3/uL (0.0-0.4); EOS % 1.5 % (1.0-4.0); HEMATOCRIT 28.4 % (37.0-47.0); LYMPH # 0.7 10*3/uL (1.3-4.4); LYMPH % 10.3 % (27.0-41.0); MEAN CELL VOLUME 97.6 fl (81.0-99.0); MEAN CORPUSCULAR HGB 29.9 pg (27.0-31.0); MEAN CORPUSCULAR HGB CONC 30.6 g/dl (33.0-37.0); MEAN PLATELET VOLUME 9.9 fl (9.6-12.3); MONO # 0.6 10*3/uL (0.1-1.0); MONO % 8.6 % (3.0-9.0); NEUT # 5.2 10*3/uL (2.3-7.9); NEUT % 78.5 % (47.0-73.0); PLATELET COUNT AUTOMATED 248 10*3/uL (130-400); RED BLOOD COUNT 2.91 10*6/uL (4.10-5.10); RED CELL DISTRI WIDTH 14.2 % (0-14.5); WHITE BLOOD COUNT 6.6 10*3/uL (4.8-10.8)
[2023-09-20 07:20] LABS: POTASSIUM 4.6 mmol/L (3.4-5.1); TOTAL PROTEIN 4.9 gm/dL (6.0-8.0)
[2023-09-20 08:00] VITALS: BP 148/56
[2023-09-20 12:00] VITALS: BP 156/59
[2023-09-20] MEDS ORDERED: FUROSEMIDE 40 MG/4 ML VIAL IV ONE (13:25)
[2023-09-20 16:00] VITALS: BP 130/58
[2023-09-20 20:00] VITALS: BP 171/53
[2023-09-21] VITALS: BP 137/48
[2023-09-21] MEDS ORDERED: Albuterol Sulfate 1.25 MG/3 ML VIAL NEB SCH (07:32)
[2023-09-21 08:00] VITALS: BP 129/50
[2023-09-21] MEDS ORDERED: GUAIFENESIN 600 MG TAB ER PO SCH (10:00)
[2023-09-21] MEDS ORDERED: Doxycycline Hyclate 100 MG CAP PO SCH (10:00)
[2023-09-21 12:00] VITALS: BP 132/70
[2023-09-21 13:51] LABS: POTASSIUM 4.8 mmol/L (3.4-5.1); TOTAL PROTEIN 5.1 gm/dL (6.0-8.0)
[2023-09-21 16:00] VITALS: BP 171/51
[2023-09-21] MEDS ORDERED: FUROSEMIDE 40 MG/4 ML VIAL IV ONE (18:20)
[2023-09-21 20:00] VITALS: BP 166/56
[2023-09-22] VITALS: BP 137/93
[2023-09-22 06:00] VITALS: BP 187/56
[2023-09-22 06:14] LABS: BASO % 0.1 % (0.0-1.0); EOS % 0.4 % (1.0-4.0); HEMATOCRIT 26.9 % (37.0-47.0); LYMPH # 1.2 10*3/uL (1.3-4.4); LYMPH % 17.6 % (27.0-41.0); MEAN CELL VOLUME 96.4 fl (81.0-99.0); MEAN CORPUSCULAR HGB 29.7 pg (27.0-31.0); MEAN CORPUSCULAR HGB CONC 30.9 g/dl (33.0-37.0); MONO # 0.7 10*3/uL (0.1-1.0); MONO % 10.2 % (3.0-9.0); NEUT # 4.9 10*3/uL (2.3-7.9); NEUT % 71.3 % (47.0-73.0); PLATELET COUNT AUTOMATED 214 10*3/uL (130-400); RED BLOOD COUNT 2.79 10*6/uL (4.10-5.10); RED CELL DISTRI WIDTH 14.2 % (0-14.5); WHITE BLOOD COUNT 6.8 10*3/uL (4.8-10.8)
[2023-09-22 06:16] LABS: POTASSIUM 4.1 mmol/L (3.4-5.1); TOTAL PROTEIN 4.8 gm/dL (6.0-8.0)
[2023-09-22] MEDS ORDERED: DEXTROSE 10 % IN WATER 250 ML DEHP.FR.BG IV ONE (06:25)
[2023-09-22 08:00] VITALS: BP 176/54
[2023-09-22] MEDS ORDERED: FUROSEMIDE 40 MG TAB PO SCH (10:00)
[2023-09-22 12:00] VITALS: BP 186/57
[2023-09-22 16:00] VITALS: BP 140/45
[2023-09-22 20:00] VITALS: BP 153/45
[2023-09-22] MEDS ORDERED: Acetaminophen/Oxycodone 5 MG/325 MG TABLET PO PRN (20:45)
[2023-09-22] MEDS ORDERED: HYDROmorphONE Hydrochloride 0.5 MG/0.5 ML SYRINGE IV ONE (20:45)
[2023-09-23] VITALS: BP 159/45
[2023-09-23 08:00] VITALS: BP 156/46
[2023-09-23 10:01] LABS: BASO % 0.2 % (0.0-1.0); EOS # 0.1 10*3/uL (0.0-0.4); EOS % 0.9 % (1.0-4.0); HEMATOCRIT 28.4 % (37.0-47.0); LYMPH # 1.1 10*3/uL (1.3-4.4); LYMPH % 16.6 % (27.0-41.0); MEAN CELL VOLUME 95.9 fl (81.0-99.0); MEAN CORPUSCULAR HGB 29.4 pg (27.0-31.0); MEAN CORPUSCULAR HGB CONC 30.6 g/dl (33.0-37.0); MEAN PLATELET VOLUME 9.6 fl (9.6-12.3); MONO # 0.5 10*3/uL (0.1-1.0); MONO % 8.2 % (3.0-9.0); NEUT # 4.8 10*3/uL (2.3-7.9); NEUT % 73.5 % (47.0-73.0); PLATELET COUNT AUTOMATED 229 10*3/uL (130-400); RED BLOOD COUNT 2.96 10*6/uL (4.10-5.10); RED CELL DISTRI WIDTH 14.2 % (0-14.5); WHITE BLOOD COUNT 6.6 10*3/uL (4.8-10.8)
[2023-09-23 10:21] LABS: POTASSIUM 4.3 mmol/L (3.4-5.1)
[2023-09-23 12:00] VITALS: BP 151/38
[2023-09-23 13:22] VITALS: BP 115/40
[2023-09-23 16:00] VITALS: BP 153/45
[2023-09-23 20:00] VITALS: BP 172/51
[2023-09-24] VITALS: BP 133/39
[2023-09-24 08:00] VITALS: BP 165/42
[2023-09-24] MEDS ORDERED: FUROSEMIDE 40 MG/4 ML VIAL IV SCH (10:00)
[2023-09-24 12:00] VITALS: BP 193/59
[2023-09-24 13:00] VITALS: BP 150/42
[2023-09-24 15:06] LABS: FREE KAPPA LIGHT CHAINS 48.1 mg/L (3.3-19.4); FREE LAMBDA LIGHT CHAINS 33.7 mg/L (5.7-26.3); KAPPA/LAMBDA RATIO 1.43 (0.26-1.65)
[2023-09-24 16:00] VITALS: BP 106/35
[2023-09-24 20:00] VITALS: BP 133/44
[2023-09-24] MEDS ORDERED: HYDROmorphONE Hydrochloride 0.5 MG/0.5 ML SYRINGE IV ONE (20:15)
[2023-09-25] VITALS: BP 137/44
[2023-09-25 06:14] LABS: BASO % 0.2 % (0.0-1.0); EOS # 0.2 10*3/uL (0.0-0.4); EOS % 2.6 % (1.0-4.0); HEMATOCRIT 26.2 % (37.0-47.0); LYMPH # 1.3 10*3/uL (1.3-4.4); LYMPH % 19.5 % (27.0-41.0); MEAN CELL VOLUME 95.3 fl (81.0-99.0); MEAN CORPUSCULAR HGB 29.8 pg (27.0-31.0); MEAN CORPUSCULAR HGB CONC 31.3 g/dl (33.0-37.0); MEAN PLATELET VOLUME 9.5 fl (9.6-12.3); MONO # 0.5 10*3/uL (0.1-1.0); MONO % 6.9 % (3.0-9.0); NEUT # 4.7 10*3/uL (2.3-7.9); NEUT % 70.2 % (47.0-73.0); PLATELET COUNT AUTOMATED 212 10*3/uL (130-400); RED BLOOD COUNT 2.75 10*6/uL (4.10-5.10); RED CELL DISTRI WIDTH 13.8 % (0-14.5); WHITE BLOOD COUNT 6.6 10*3/uL (4.8-10.8)
[2023-09-25 06:37] LABS: POTASSIUM 4.4 mmol/L (3.4-5.1); TOTAL PROTEIN 4.6 gm/dL (6.0-8.0)
[2023-09-25 07:06] LABS: HEPATITIS B SURFACE AB Non Reactive (.); HEPATITIS B SURFACE AG Negative (Negative)
[2023-09-25] MEDS ORDERED: Albuterol Sulfate 1.25 MG/3 ML VIAL NEB ONE ×2 (07:30→15:20)
[2023-09-25 08:00] VITALS: BP 132/52
[2023-09-25 12:00] VITALS: BP 155/78
[2023-09-25] MEDS ORDERED: DOXYCYCLINE HY100 M3 PO (15:13)
[2023-09-25 16:00] VITALS: BP 147/53
[2023-09-25] MEDS ORDERED: NYSTATIN 15 GM BOT T SCH (22:00)
[2023-09-27 13:07] LABS: A/G RATIO 1.2 (0.7-1.7); ALBUMIN 2.3 g/dL (2.9-4.4); ALPHA-1-GLOBULIN 0.3 g/dL (0.0-0.4); ALPHA-2-GLOBULIN 0.9 g/dL (0.4-1.0); BETA GLOBULIN 0.5 g/dL (0.7-1.3); GAMMA GLOBULIN 0.3 g/dL (0.4-1.8); M-SPIKE Comment: g/dL (Not Observed); TOTAL PROTEIN, SERUM 4.3 g/dL (6.0-8.5)
== END 2023-09-25 20:21 | disposition short-term general hospital (02) | DRG 562 ==
LOC: ED 02:12 → EDHOLD 06:26 → 4E 06:26
PROVIDERS: Emergency Medicine; Internal Medicine; Internal Medicine Nephrology; ADMIT Internal Medicine; ATTEND Internal Medicine
PROC: 30233N1 Transfusion of Nonautologous Red Blood Cells into Peripheral Vein, Percutaneous Approach (ICD-10-PCS; principal; 2023-09-18)
DX: S42.212A Unspecified displaced fracture of surgical neck of left humerus, initial encounter for closed fracture (principal); E43 Unspecified severe protein-calorie malnutrition; N39.0 Urinary tract infection, site not specified; J98.11 Atelectasis; J91.8 Pleural effusion in other conditions classified elsewhere; I13.0 Hypertensive heart and chronic kidney disease with heart failure and stage 1 through stage 4 chronic kidney disease, or unspecified chronic kidney disease; E44.1 Mild protein-calorie malnutrition; R31.9 Hematuria, unspecified; M19.012 Primary osteoarthritis, left shoulder; W18.39XA Other fall on same level, initial encounter; D63.8 Anemia in other chronic diseases classified elsewhere; I48.0 Paroxysmal atrial fibrillation; I25.10 Atherosclerotic heart disease of native coronary artery without angina pectoris; Z95.5 Presence of coronary angioplasty implant and graft; E11.51 Type 2 diabetes mellitus with diabetic peripheral angiopathy without gangrene; E11.22 Type 2 diabetes mellitus with diabetic chronic kidney disease; L89.156 Pressure-induced deep tissue damage of sacral region; L89.326 Pressure-induced deep tissue damage of left buttock; I50.9 Heart failure, unspecified; K21.9 Gastro-esophageal reflux disease without esophagitis; N81.10 Cystocele, unspecified; L89.316 Pressure-induced deep tissue damage of right buttock; L89.226 Pressure-induced deep tissue damage of left hip; L89.216 Pressure-induced deep tissue damage of right hip; L89.526 Pressure-induced deep tissue damage of left ankle; B95.61 Methicillin susceptible Staphylococcus aureus infection as the cause of diseases classified elsewhere; K59.00 Constipation, unspecified; N18.30 Chronic kidney disease, stage 3 unspecified; Y93.89 Activity, other specified; Y92.89 Other specified places as the place of occurrence of the external cause; Y99.8 Other external cause status; Z88.0 Allergy status to penicillin; Z91.041 Radiographic dye allergy status; Z79.4 Long term (current) use of insulin; Z79.899 Other long term (current) drug therapy; Z79.1 Long term (current) use of non-steroidal anti-inflammatories (NSAID); Z79.82 Long term (current) use of aspirin; Z68.30 Body mass index [BMI] 30.0-30.9, adult

== ENCOUNTER 2023-10-08 14:14 | Inpatient (IN) | payer MEDICARE ==
[~2023-10-08] VITALS: Ht 162.5 cm; Wt 81.7 kg
[~2023-10-08 14:14] MED LIST changes: +CIPRO500 MG PO; +DOXYCYCLINE HY100 M3 PO; +HYDROXYZINE HCL10 MG PO
[2023-10-08 14:19] VITALS: BP 165/61
[2023-10-08 14:50] LABS: BASO % 0.1 % (0.0-1.0); EOS # 0.1 10*3/uL (0.0-0.4); EOS % 0.5 % (1.0-4.0); HEMATOCRIT 30.4 % (37.0-47.0); LYMPH # 1.7 10*3/uL (1.3-4.4); LYMPH % 12.4 % (27.0-41.0); MEAN CELL VOLUME 95.9 fl (81.0-99.0); MEAN CORPUSCULAR HGB 28.7 pg (27.0-31.0); MEAN CORPUSCULAR HGB CONC 29.9 g/dl (33.0-37.0); MEAN PLATELET VOLUME 9.3 fl (9.6-12.3); MONO # 0.9 10*3/uL (0.1-1.0); MONO % 6.8 % (3.0-9.0); NEUT # 10.6 10*3/uL (2.3-7.9); NEUT % 79.5 % (47.0-73.0); PLATELET COUNT AUTOMATED 341 10*3/uL (130-400); RED BLOOD COUNT 3.17 10*6/uL (4.10-5.10); RED CELL DISTRI WIDTH 14.3 % (0-14.5); WHITE BLOOD COUNT 13.4 10*3/uL (4.8-10.8)
[2023-10-08 15:09] LABS: POTASSIUM 4.4 mmol/L (3.4-5.1)
[2023-10-08] MEDS ORDERED: Ceftriaxone Sodium 1 GM/10 ML SYR IV ONE (15:55)
[2023-10-08] MEDS ORDERED: AZITHROMYCIN 250 ML IV ONE (15:55)
[2023-10-08 16:00] VITALS: BP 147/50
[2023-10-08] MEDS ORDERED: COUGH SYRU100 MG/51 PO (17:44)
[2023-10-08] MEDS ORDERED: CALMOSEPTINE OI71 GM T (17:49)
[2023-10-08] MEDS ORDERED: TRAZODONE50 MG PO (17:53)
[2023-10-08] MEDS ORDERED: ONDANSETRON HYDR4 M1 PO (17:54)
[2023-10-08] MEDS ORDERED: OXYCODONE-ACET1 EAC3 PO (17:55)
[2023-10-08] MEDS ORDERED: ISOSORBIDE MONONITRATE 30 MG TAB PO SCH ×2 (18:00→19:40)
[2023-10-08] MEDS ORDERED: Pantoprazole Sodium 40 MG TAB PO SCH ×2 (18:00→19:41)
[2023-10-08] MEDS ORDERED: Albuterol Sulf/Ipratropium 3 ML VIAL NEB SCH (18:00)
[2023-10-08 18:35] LABS: BILIRUBIN Negative (Negative); BLOOD Negative (Negative); CLARITY Clear (Clear); COLOR Yellow (Yellow); GLUCOSE Negative (Negative); KETONE Negative (Negative); LEUKO ESTERASE Negative (Negative); NITRITE Negative (Negative); SPECIFIC GRAVITY 1.015 (1.001-1.030); UROBILINOGEN 0.2 E.U./dl (0.0-1.0)
[2023-10-08 18:49] LABS: YEAST 2+
[2023-10-08 18:50] LABS: BACTERIA 2+
[2023-10-08 19:59] VITALS: BP 137/50
[2023-10-08 20:00] VITALS: BP 147/50
[2023-10-08 21:00] VITALS: BP 160/58
[2023-10-08] MEDS ORDERED: CARVEDILOL 12.5 MG TAB PO SCH (22:00)
[2023-10-08] MEDS ORDERED: HEPARIN SODIUM 5,000 UNIT/ML VIAL SC SCH (22:00)
[2023-10-08] MEDS ORDERED: DEXTROSE 10 % IN WATER 250 ML IV PRN (22:35)
[2023-10-08 23:07] VITALS: BP 92/52
[2023-10-08] MEDS ORDERED: FUROSEMIDE 20 MG/2 ML VIAL IV ONE (23:40)
[2023-10-09] VITALS: BP 165/47
[2023-10-09] MEDS ORDERED: NYSTATIN 15 GM BOT T SCH (03:45)
[2023-10-09 06:59] LABS: POTASSIUM 4.3 mmol/L (3.4-5.1); TOTAL PROTEIN 4.8 gm/dL (6.0-8.0)
[2023-10-09 07:07] LABS: BASO % 0.2 % (0.0-1.0); EOS # 0.2 10*3/uL (0.0-0.4); EOS % 1.5 % (1.0-4.0); HEMATOCRIT 27.1 % (37.0-47.0); LYMPH # 1.7 10*3/uL (1.3-4.4); LYMPH % 14.3 % (27.0-41.0); MEAN CELL VOLUME 94.8 fl (81.0-99.0); MEAN CORPUSCULAR HGB 29.4 pg (27.0-31.0); MEAN PLATELET VOLUME 9.3 fl (9.6-12.3); MONO # 1.1 10*3/uL (0.1-1.0); MONO % 9.1 % (3.0-9.0); NEUT # 8.6 10*3/uL (2.3-7.9); NEUT % 74.1 % (47.0-73.0); PLATELET COUNT AUTOMATED 297 10*3/uL (130-400); RED BLOOD COUNT 2.86 10*6/uL (4.10-5.10); RED CELL DISTRI WIDTH 14.4 % (0-14.5); WHITE BLOOD COUNT 11.6 10*3/uL (4.8-10.8)
[2023-10-09 07:30] VITALS: BP 140/49
[2023-10-09] MEDS ORDERED: INSULIN LISPRO 1 UNIT/0.01 ML SQ SCH (07:30)
[2023-10-09] MEDS ORDERED: Levothyroxine Sodium 125 MCG TAB PO SCH (10:00)
[2023-10-09] MEDS ORDERED: FUROSEMIDE 40 MG TAB PO SCH (10:00)
[2023-10-09] MEDS ORDERED: FUROSEMIDE 40 MG/4 ML VIAL IV SCH (10:00)
[2023-10-09] MEDS ORDERED: FUROSEMIDE 40 MG IV SCH (10:00)
[2023-10-09] MEDS ORDERED: DILTIAZEM CD 120 MG CAP PO SCH (10:00)
[2023-10-09] MEDS ORDERED: Insulin Glargine, Recombinan 1 UNIT/0.01 ML SC SCH (10:00)
[2023-10-09] MEDS ORDERED: ATORVASTATIN CALCIUM 40 MG TABLET PO SCH (10:00)
[2023-10-09] MEDS ORDERED: ASPIRIN ENTERIC COATED 81 MG TAB PO SCH (10:00)
[2023-10-09] MEDS ORDERED: Clopidogrel Hydrogen Sulfate 75 MG TAB PO SCH (10:00)
[2023-10-09] MEDS ORDERED: Cefepime Hydrochloride 2 GM,IV 1 EA in SODIUM CHLORIDE 0.9% 50 ML IV SCH ×2 (11:45→12:30)
[2023-10-09 12:37] VITALS: BP 157/52
[2023-10-09] MEDS ORDERED: AZITHROMYCIN 250 ML IV SCH (15:00)
[2023-10-09 16:00] VITALS: BP 150/60
[2023-10-09] MEDS ORDERED: Ceftriaxone Sodium 1 GM in SYRINGE INFUSION 10 ML IV SCH (16:00)
[2023-10-09 20:00] VITALS: BP 147/50
[2023-10-10] VITALS: BP 131/72
[2023-10-10 07:33] LABS: BASO % 0.3 % (0.0-1.0); EOS # 0.1 10*3/uL (0.0-0.4); EOS % 1.1 % (1.0-4.0); HEMATOCRIT 25.7 % (37.0-47.0); LYMPH # 1.9 10*3/uL (1.3-4.4); LYMPH % 15.6 % (27.0-41.0); MEAN CELL VOLUME 96.6 fl (81.0-99.0); MEAN CORPUSCULAR HGB 29.3 pg (27.0-31.0); MEAN CORPUSCULAR HGB CONC 30.4 g/dl (33.0-37.0); MEAN PLATELET VOLUME 9.3 fl (9.6-12.3); MONO # 1.3 10*3/uL (0.1-1.0); MONO % 10.2 % (3.0-9.0); NEUT # 8.8 10*3/uL (2.3-7.9); PLATELET COUNT AUTOMATED 305 10*3/uL (130-400); RED BLOOD COUNT 2.66 10*6/uL (4.10-5.10); RED CELL DISTRI WIDTH 14.3 % (0-14.5); WHITE BLOOD COUNT 12.2 10*3/uL (4.8-10.8)
[2023-10-10 07:54] LABS: POTASSIUM 4.2 mmol/L (3.4-5.1); TOTAL PROTEIN 4.8 gm/dL (6.0-8.0)
[2023-10-10 08:00] VITALS: BP 165/51; BP 170/56
[2023-10-10] MEDS ORDERED: Lidocaine Hydrochloride 30 ML VIAL IM PRN (08:10)
[2023-10-10] MEDS ORDERED: Lidocaine Hydrochloride 30 ML VIAL ONE (09:10)
[2023-10-10] MEDS ORDERED: EPOETIN ALFA-EPBX 10,000 UNIT/ML VIAL SC ONE (10:05)
[2023-10-10 12:00] VITALS: BP 168/86
[2023-10-10 12:26] LABS: BF LYMPHOCYTES 5 %; BF MACROPHAGES 6 %; BF NEUTROPHILS 89 %
[2023-10-10] MEDS ORDERED: Acetaminophen/Hydrocodone 5 MG/325 MG TABLET PO PRN (12:35)
[2023-10-10 16:00] VITALS: BP 131/47
[2023-10-10] MEDS ORDERED: AZITHROMYCIN 250 MG TAB PO SCH (16:00)
[2023-10-10 20:00] VITALS: BP 148/49
[2023-10-10] MEDS ORDERED: Docusate Sodium/Senna 1 TAB TAB PO SCH (22:00)
[2023-10-11] VITALS: BP 146/45
[2023-10-11 08:00] VITALS: BP 101/69
[2023-10-11] MEDS ORDERED: ALBUMIN 25% 100 ML IV ONE (10:30)
[2023-10-11 11:35] LABS: BF LYMPHOCYTES 20 %; BF MACROPHAGES 46 %; BF MESOTHELIALS 4 %; BF NEUTROPHILS 18 %
[2023-10-11 12:00] VITALS: BP 110/72
[2023-10-11 16:00] VITALS: BP 124/56
[2023-10-11 20:00] VITALS: BP 145/56
[2023-10-12] VITALS: BP 151/58
[2023-10-12] MEDS ORDERED: CHAIR CUSHION DEVICE ONE (00:43)
[2023-10-12] MEDS ORDERED: FOAM BANDAGE 1 EACH BANDAGE T ONE (00:43)
[2023-10-12] MEDS ORDERED: FOAM BANDAGE HEEL T ONE (00:43)
[2023-10-12] MEDS ORDERED: HEEL PROTECTOR DEVICE ONE (00:43)
[2023-10-12 08:00] VITALS: BP 168/80
[2023-10-12 08:59] LABS: POTASSIUM 4.2 mmol/L (3.4-5.1); TOTAL PROTEIN 4.7 gm/dL (6.0-8.0)
[2023-10-12] MEDS ORDERED: Polyethylene Glycol 3350 17 GM PACKET PO PRN (09:30)
[2023-10-12 10:39] LABS: BASO % 0.3 % (0.0-1.0); EOS # 0.2 10*3/uL (0.0-0.4); EOS % 2.4 % (1.0-4.0); HEMATOCRIT 24.7 % (37.0-47.0); LYMPH # 1.3 10*3/uL (1.3-4.4); LYMPH % 13.9 % (27.0-41.0); MEAN CELL VOLUME 96.1 fl (81.0-99.0); MEAN CORPUSCULAR HGB 28.8 pg (27.0-31.0); MEAN PLATELET VOLUME 9.2 fl (9.6-12.3); MONO # 0.7 10*3/uL (0.1-1.0); MONO % 7.9 % (3.0-9.0); NEUT # 6.7 10*3/uL (2.3-7.9); NEUT % 74.6 % (47.0-73.0); PLATELET COUNT AUTOMATED 298 10*3/uL (130-400); RED BLOOD COUNT 2.57 10*6/uL (4.10-5.10); RED CELL DISTRI WIDTH 14.4 % (0-14.5)
[2023-10-12 12:00] VITALS: BP 140/62
[2023-10-12 16:00] VITALS: BP 151/80
[2023-10-12 20:00] VITALS: BP 150/41
[2023-10-12] MEDS ORDERED: LEVOFLOXACIN750 M2 PO (23:58)
[2023-10-13] VITALS: BP 106/54; BP 168/58; BP 184/53
[2023-10-13] MEDS ORDERED: Albuterol Sulf/Ipratropium 3 ML VIAL NEB SCH (05:00)
[2023-10-13 08:00] VITALS: BP 151/98
[2023-10-13] MEDS ORDERED: Lidocaine Hydrochloride 30 ML VIAL ONE (08:33)
[2023-10-13] MEDS ORDERED: SIMETHICONE 80 MG TAB PO ONE (09:50)
[2023-10-13] MEDS ORDERED: FUROSEMIDE 40 MG TAB PO SCH (10:00)
[2023-10-13 12:00] VITALS: BP 184/85
[2023-10-13 16:00] VITALS: BP 155/76
[2023-10-13 20:00] VITALS: BP 153/63
[2023-10-14] VITALS: BP 152/64
[2023-10-14 08:00] VITALS: BP 153/63
[2023-10-14] MEDS ORDERED: FOAM BANDAGE 6X6 T ONE (10:34)
[2023-10-14 12:00] VITALS: BP 149/69
[2023-10-14 16:00] VITALS: BP 152/68
[2023-10-14 20:00] VITALS: BP 168/56
[2023-10-15] VITALS: BP 180/54
[2023-10-15 06:18] LABS: POTASSIUM 4.1 mmol/L (3.4-5.1); TOTAL PROTEIN 4.4 gm/dL (6.0-8.0)
[2023-10-15 06:25] LABS: BASO % 0.4 % (0.0-1.0); EOS # 0.3 10*3/uL (0.0-0.4); EOS % 3.3 % (1.0-4.0); HEMATOCRIT 24.1 % (37.0-47.0); LYMPH # 1.6 10*3/uL (1.3-4.4); LYMPH % 18.6 % (27.0-41.0); MEAN CELL VOLUME 96.8 fl (81.0-99.0); MEAN CORPUSCULAR HGB 28.9 pg (27.0-31.0); MEAN CORPUSCULAR HGB CONC 29.9 g/dl (33.0-37.0); MEAN PLATELET VOLUME 9.3 fl (9.6-12.3); MONO # 0.8 10*3/uL (0.1-1.0); MONO % 9.5 % (3.0-9.0); NEUT # 5.7 10*3/uL (2.3-7.9); NEUT % 66.8 % (47.0-73.0); PLATELET COUNT AUTOMATED 319 10*3/uL (130-400); RED BLOOD COUNT 2.49 10*6/uL (4.10-5.10); WHITE BLOOD COUNT 8.6 10*3/uL (4.8-10.8)
[2023-10-15 08:00] VITALS: BP 163/56
[2023-10-15 12:00] VITALS: BP 188/61
[2023-10-15] MEDS ORDERED: cloNIDine Hydrochloride 0.1 MG TAB PO ONE (12:50)
[2023-10-15] MEDS ORDERED: Ondansetron Hydrochloride 4 MG/2 ML VIAL IV PRN (12:50)
[2023-10-15 16:00] VITALS: BP 162/56
[2023-10-15 20:00] VITALS: BP 104/79; BP 172/54
[2023-10-16] VITALS: BP 168/65
[2023-10-16 06:12] LABS: BASO % 0.4 % (0.0-1.0); EOS # 0.3 10*3/uL (0.0-0.4); EOS % 3.2 % (1.0-4.0); HEMATOCRIT 24.5 % (37.0-47.0); LYMPH # 1.9 10*3/uL (1.3-4.4); LYMPH % 22.1 % (27.0-41.0); MEAN CELL VOLUME 96.5 fl (81.0-99.0); MEAN CORPUSCULAR HGB 28.7 pg (27.0-31.0); MEAN CORPUSCULAR HGB CONC 29.8 g/dl (33.0-37.0); MEAN PLATELET VOLUME 9.1 fl (9.6-12.3); MONO # 0.8 10*3/uL (0.1-1.0); MONO % 9.5 % (3.0-9.0); NEUT # 5.3 10*3/uL (2.3-7.9); NEUT % 62.9 % (47.0-73.0); PLATELET COUNT AUTOMATED 329 10*3/uL (130-400); RED BLOOD COUNT 2.54 10*6/uL (4.10-5.10); RED CELL DISTRI WIDTH 14.1 % (0-14.5); WHITE BLOOD COUNT 8.4 10*3/uL (4.8-10.8)
[2023-10-16 06:31] LABS: POTASSIUM 4.1 mmol/L (3.4-5.1); TOTAL PROTEIN 4.5 gm/dL (6.0-8.0)
[2023-10-16 08:24] VITALS: BP 152/74
[2023-10-16] MEDS ORDERED: DILTIAZEM CD 240 MG CAP PO SCH (10:00)
[2023-10-16 12:03] VITALS: BP 144/72
[2023-10-16] MEDS ORDERED: FOAM BANDAGE 6X6 T ONE (13:44)
[2023-10-16 16:00] VITALS: BP 173/84
[2023-10-16] MEDS ORDERED: ALBUMIN 25% 100 ML IV SCH (18:00)
[2023-10-16 20:00] VITALS: BP 135/60
[2023-10-16 20:07] LABS: TB1 Ag VALUE 0.04 IU/mL (.)
[2023-10-16 22:37] LABS: BILIRUBIN Negative (Negative); BLOOD 2+ (Negative); CLARITY Clear (Clear); COLOR Yellow (Yellow); GLUCOSE Negative (Negative); KETONE Negative (Negative); LEUKO ESTERASE 1+ (Negative); NITRITE Negative (Negative); PH 5.5 (4.5-8.0); UROBILINOGEN 0.2 E.U./dl (0.0-1.0)
[2023-10-16 23:11] LABS: BACTERIA 1+; RBC 21-30 rbc/hpf (0-2); WBC 31-40 wbc/hpf (0-5)
[2023-10-17] VITALS: BP 150/48
[2023-10-17 08:00] VITALS: BP 158/65
[2023-10-17] MEDS ORDERED: FOAM BANDAGE 1 EACH BANDAGE T ONE (08:05)
[2023-10-17] MEDS ORDERED: FOAM BANDAGE HEEL T ONE (08:05)
[2023-10-17] MEDS ORDERED: FOAM BANDAGE 4X4 T ONE (08:05)
[2023-10-17 12:00] VITALS: BP 160/60
[2023-10-17 15:55] VITALS: BP 151/73
[2023-10-17] MEDS ORDERED: Acetaminophen/Hydrocodone 5 MG/325 MG TABLET PO PRN (19:50)
[2023-10-17] MEDS ORDERED: BISACODYL 5 MG TAB PO PRN (19:55)
[2023-10-17 20:00] VITALS: BP 136/83
[2023-10-18] VITALS: BP 177/50
[2023-10-18] MEDS ORDERED: BISACODYL 10 MG SUPP R ONE (05:25)
[2023-10-18 08:00] VITALS: BP 166/83
[2023-10-18] MEDS ORDERED: FUROSEMIDE 40 MG/4 ML VIAL IV ONE (11:25)
[2023-10-18 11:36] LABS: POTASSIUM 3.9 mmol/L (3.4-5.1)
[2023-10-18 12:00] VITALS: BP 180/54
[2023-10-18 16:00] VITALS: BP 168/70; BP 180/75
[2023-10-18 20:00] VITALS: BP 178/50
[2023-10-19] VITALS: BP 150/45
[2023-10-19] MEDS ORDERED: Magnesium Hydroxide 30 ML UDC PO PRN (00:15)
[2023-10-19 06:30] LABS: BASO % 0.3 % (0.0-1.0); EOS # 0.3 10*3/uL (0.0-0.4); EOS % 2.2 % (1.0-4.0); HEMATOCRIT 25.6 % (37.0-47.0); LYMPH # 1.8 10*3/uL (1.3-4.4); LYMPH % 14.8 % (27.0-41.0); MEAN CELL VOLUME 98.1 fl (81.0-99.0); MEAN CORPUSCULAR HGB 29.1 pg (27.0-31.0); MEAN CORPUSCULAR HGB CONC 29.7 g/dl (33.0-37.0); MONO % 8.6 % (3.0-9.0); NEUT # 8.8 10*3/uL (2.3-7.9); NEUT % 73.1 % (47.0-73.0); PLATELET COUNT AUTOMATED 322 10*3/uL (130-400); RED BLOOD COUNT 2.61 10*6/uL (4.10-5.10); RED CELL DISTRI WIDTH 14.5 % (0-14.5); WHITE BLOOD COUNT 12.1 10*3/uL (4.8-10.8)
[2023-10-19 06:51] LABS: POTASSIUM 3.9 mmol/L (3.4-5.1); TOTAL PROTEIN 5.2 gm/dL (6.0-8.0)
[2023-10-19 08:00] VITALS: BP 175/61
[2023-10-19] MEDS ORDERED: FOAM BANDAGE 5X5 T ONE (09:58)
[2023-10-19 11:13] VITALS: BP 167/60
[2023-10-19] MEDS ORDERED: LINEZOLID 600 MG TAB PO SCH (11:38)
[2023-10-19] MEDS ORDERED: LACTULOSE 20 GM/30 ML UDC PO ONE (14:45)
[2023-10-19 16:00] VITALS: BP 168/58; BP 193/66
[2023-10-19] MEDS ORDERED: IMDUR SA30 MG PO (17:15)
[2023-10-19] MEDS ORDERED: PANTOPRAZOLE SO40 MG PO (17:15)
[2023-10-19] MEDS ORDERED: STIMULANT LAXA1 EACH PO (17:15)
[2023-10-19] MEDS ORDERED: ASPIRIN ADULT L81 M2 PO (17:15)
[2023-10-19] MEDS ORDERED: CLOPIDOGREL75 MG PO (17:15)
[2023-10-19] MEDS ORDERED: LINEZOLID600 MG PO (17:15)
[2023-10-19] MEDS ORDERED: LEVOTHYROXINE125 MCG PO (17:15)
[2023-10-19] MEDS ORDERED: DILTIAZEM CD240 MG PO (17:15)
[2023-10-19] MEDS ORDERED: FUROSEMIDE40 MG PO (17:15)
[2023-10-19] MEDS ORDERED: ATORVASTATIN CA40 M1 PO (17:15)
[2023-10-19] MEDS ORDERED: CARVEDILOL12.5 MG PO (17:15)
[2023-10-19] MEDS ORDERED: LACTULOSE 20 GM/30 ML UDC PO PRN (18:45)
[2023-10-19 20:00] VITALS: BP 162/95
[2023-10-19] MEDS ORDERED: Prochlorperazine Edisylate 10 MG/2 ML VIAL IV ONE (20:10)
[2023-10-20 07:56] LABS: POTASSIUM 3.1 mmol/L (3.4-5.1)
[2023-10-20 08:06] VITALS: BP 177/53
[2023-10-20 11:51] VITALS: BP 144/79
[2023-10-20 12:00] VITALS: BP 148/51
[2023-10-20] MEDS ORDERED: POTASSIUM CHLORIDE 20 MEQ TAB PO ONE (14:20)
[2023-10-20 14:59] LABS: POTASSIUM 3.4 mmol/L (3.4-5.1)
[2023-10-20 15:43] VITALS: BP 160/49
[2023-10-20 20:00] VITALS: BP 166/56
[2023-10-20] MEDS ORDERED: Polyethylene Glycol 3350 17 GM PACKET PO SCH (22:00)
[2023-10-21 06:53] LABS: TOTAL PROTEIN 4.8 gm/dL (6.0-8.0)
[2023-10-21 07:06] LABS: POTASSIUM 4.4 mmol/L (3.4-5.1)
[2023-10-21 08:00] VITALS: BP 143/51
[2023-10-21] MEDS ORDERED: POTASSIUM CHLORIDE 20 MEQ TAB PO SCH (10:00)
[2023-10-21 12:00] VITALS: BP 141/54
[2023-10-21] MEDS ORDERED: FOAM BANDAGE 6X6 T ONE (15:03)
[2023-10-21 17:01] VITALS: BP 145/53
[2023-10-23] MEDS ORDERED: LEVOTHYROXINE125 MCG PO (17:49)
== END 2023-10-21 18:58 | disposition home health service (06) | DRG 193 ==
LOC: ED 14:14 → 5E 16:00 → EDHOLD 16:00 → 5E 19:35
PROVIDERS: Internal Medicine; Internal Medicine Critical Care Medicine; Internal Medicine Infectious Disease; ADMIT Internal Medicine; ATTEND Internal Medicine
PROC: 0W9B30Z Drainage of Left Pleural Cavity with Drainage Device, Percutaneous Approach (ICD-10-PCS; principal; 2023-10-11)
PROC: 05HB33Z Insertion of Infusion Device into Right Basilic Vein, Percutaneous Approach (ICD-10-PCS; 2023-10-12)
PROC: B54MZZA Ultrasonography of Right Upper Extremity Veins, Guidance (ICD-10-PCS; 2023-10-12)
PROC: 0W9930Z Drainage of Right Pleural Cavity with Drainage Device, Percutaneous Approach (ICD-10-PCS; 2023-10-13)
PROC: 0W9930Z Drainage of Right Pleural Cavity with Drainage Device, Percutaneous Approach (ICD-10-PCS; 2023-10-13)
DX: J18.9 Pneumonia, unspecified organism (principal); E43 Unspecified severe protein-calorie malnutrition; J96.21 Acute and chronic respiratory failure with hypoxia; N17.0 Acute kidney failure with tubular necrosis; N04.9 Nephrotic syndrome with unspecified morphologic changes; J91.8 Pleural effusion in other conditions classified elsewhere; I13.0 Hypertensive heart and chronic kidney disease with heart failure and stage 1 through stage 4 chronic kidney disease, or unspecified chronic kidney disease; M84.422A Pathological fracture, left humerus, initial encounter for fracture; J90 Pleural effusion, not elsewhere classified; N18.9 Chronic kidney disease, unspecified; K21.9 Gastro-esophageal reflux disease without esophagitis; E78.5 Hyperlipidemia, unspecified; E03.9 Hypothyroidism, unspecified; E11.22 Type 2 diabetes mellitus with diabetic chronic kidney disease; E11.40 Type 2 diabetes mellitus with diabetic neuropathy, unspecified; J44.9 Chronic obstructive pulmonary disease, unspecified; D64.9 Anemia, unspecified; R53.81 Other malaise; I25.10 Atherosclerotic heart disease of native coronary artery without angina pectoris; I50.9 Heart failure, unspecified; E66.9 Obesity, unspecified; S30.0XXA Contusion of lower back and pelvis, initial encounter; X58.XXXA Exposure to other specified factors, initial encounter; Z88.0 Allergy status to penicillin; Z88.8 Allergy status to other drugs, medicaments and biological substances; Z91.041 Radiographic dye allergy status; Z95.5 Presence of coronary angioplasty implant and graft; Z98.891 History of uterine scar from previous surgery; Z87.891 Personal history of nicotine dependence; Y93.89 Activity, other specified; Y92.89 Other specified places as the place of occurrence of the external cause; Y99.8 Other external cause status; Z68.32 Body mass index [BMI] 32.0-32.9, adult

== ENCOUNTER 2023-11-07 12:44 | Inpatient (IN) | payer OTHER, MEDICARE ==
[~2023-11-07 12:44] MED LIST changes: +ASPIRIN ADULT L81 M2 PO; +ATORVASTATIN CA40 M1 PO; +CALMOSEPTINE OI71 GM T; +CARVEDILOL12.5 MG PO; +CLOPIDOGREL75 MG PO; +COUGH SYRU100 MG/51 PO; +DILTIAZEM CD240 MG PO; +FUROSEMIDE40 MG PO; +LEVOFLOXACIN750 M2 PO; +LEVOTHYROXINE125 MCG PO; +LINEZOLID600 MG PO; +ONDANSETRON HYDR4 M1 PO; +OXYCODONE-ACET1 EAC3 PO; +PANTOPRAZOLE SO40 MG PO; +STIMULANT LAXA1 EACH PO; +TRAZODONE50 MG PO
[2023-11-07] MEDS ORDERED: Albuterol Sulf/Ipratropium 3 ML VIAL NEB SCH (13:10)
[2023-11-07] MEDS ORDERED: MORPHINE Sulfate 2 MG/ML SYR IV PRN ×2 (13:15→16:05)
[2023-11-07] MEDS ORDERED: hydrOXYzine pamoate 25 MG CAP PO PRN (13:15)
[2023-11-07] MEDS ORDERED: LORazepam 1 MG TAB PO PRN (13:20)
[2023-11-07] MEDS ORDERED: BISACODYL 10 MG SUPP R PRN (13:20)
[2023-11-07] MEDS ORDERED: ISOSORBIDE MONONITRATE 30 MG TAB PO SCH (18:00)
[2023-11-07] MEDS ORDERED: Albuterol Sulf/Ipratropium 3 ML VIAL NEB PRN (18:35)
[2023-11-07 20:00] VITALS: BP 111/30
[2023-11-07] MEDS ORDERED: CARVEDILOL 12.5 MG TAB PO SCH (22:00)
[2023-11-07] MEDS ORDERED: busPIRone Hydrochloride 5 MG TAB PO SCH (22:00)
== END 2023-11-08 05:52 | DRG 641 ==
LOC: 5E 12:44
PROVIDERS: ADMIT Internal Medicine; ATTEND Internal Medicine
DX: E86.0 Dehydration (principal); D50.0 Iron deficiency anemia secondary to blood loss (chronic); Z66 Do not resuscitate; R10.9 Unspecified abdominal pain; R82.81 Pyuria; Z51.5 Encounter for palliative care